=== PATIENT | female | born 1970 | race Asian ===

== ENCOUNTER 2020-05-01 08:07 | Inpatient (IN) | payer BC ==
--- NOTE | 2020-05-01 04:03 | HP ---
Satellite [facility] - Chief Complaint History Source: Patient Limitations to Obtaining History: No Limitations - Past Medical History Allergies/Adverse Reactions: Allergies Allergy/AdvReac Type Severity Reaction Status Date / Time No Known Drug Allergies Allergy Verified 04/27/20 17:52 ...LMP: 04/26/20 - Current Medications Current Medications: Home Medications Medication Instructions Recorded Acetaminophen [Tylenol] 650 mg PO PRN PRN 04/27/20 Ascorbate Calcium/Bioflavonoid 1 each PO DAILY 04/27/20 [Rachell-C 1,000 mg Tablet] Cyanocobalamin (Vitamin B-12) 2,500 mcg PO DAILY 04/27/20 [Vitamin B12] Ibuprofen [Motrin -] 400 mg PO PRN PRN 04/27/20 Iron 65 mg PO DAILY 04/27/20 Multivitamin [Multiple Vitamins] 1 each PO DAILY 04/27/20 Satellite Physical Exam - Physical Examination General Appearance: Well Nourished, Well Developed, Obese Lung: Clear to auscultation Heart: Regular rate & rhythm Breasts: Soft, Non-Tender Abdomen: Soft, No tenderness Extremities: No edema Pelvic Exam: Within normal limits External Genitalia, Within normal limits Vagina, Within normal limits Cervix, Within normal limits [place], Other Uterus (uterus enlarged 14cm) Neurological: Intact, Alert, Oriented Satellite Impression/Plan - Impression/Plan Impression: Leiomyomatous uterus. menorrhagia. anemia. SP transfusion Operative Procedure: Total abdominal hysterectomy. bilateral salpingectomy
[2020-05-01] MEDS ORDERED: BUPIVACAINE LIPOSOME/PF (EXPAREL) 266 MG/20 ML VIAL ONE (12:03)
[2020-05-01] MEDS ORDERED: MIDAZOLAM HCL 2 MG/2 ML SINGLE DOSE VIAL ONE ×2 (12:11)
[2020-05-01] MEDS ORDERED: CEFAZOLIN 2 GM in DEXTROSE 5%-WATER - 100 ML IVPB ONE (12:15)
[2020-05-01] MEDS ORDERED: PHENAZOPYRIDINE HCL 100 MG TABLET (FP) PO ONE (12:15)
[2020-05-01] MEDS ORDERED: ROCURONIUM BROMIDE 50 MG/5 ML SYRINGE ONE (13:08)
[2020-05-01] MEDS ORDERED: LIDOCAINE HCL/PF 2% SDV 5ML VIAL ONE (13:10)
[2020-05-01] MEDS ORDERED: ceFAZolin SODIUM 1 GM VIAL ONE ×2 (13:17→22:27)
[2020-05-01] MEDS ORDERED: SODIUM CHLORIDE 0.9% P/F 10 ML VIAL IJ ONE (13:17)
[2020-05-01] MEDS ORDERED: ceFAZolin 2 GRAM PREMIX BAG IVPB ONE (13:19)
[2020-05-01] MEDS ORDERED: DEXAMETHASONE SOD PHOSPHATE 4 MG/1 ML VIAL ONE (13:19)
[2020-05-01] MEDS ORDERED: NEOSTIGMINE METHYLSULFATE 0.5 MG/ML - 10 ML MDV ONE (14:50)
[2020-05-01] MEDS ORDERED: ONDANSETRON 4 MG/2 ML VIAL IVPUSH PRN (15:10)
[2020-05-01] MEDS ORDERED: BISACODYL 5 MG TABLET.DR (FP) PO PRN (15:10)
[2020-05-01] MEDS ORDERED: DOCUSATE SODIUM 100 MG CAPSULE (FP) PO PRN (15:10)
[2020-05-01] MEDS ORDERED: IBUPROFEN 800 MG/8 ML IJ IVPB PRN (15:10)
[2020-05-01] MEDS ORDERED: ACETAMINOPHEN 325 MG TABLET (FP) PO PRN (15:10)
[2020-05-01] MEDS ORDERED: SIMETHICONE 80 MG TAB.CHEW (FP) PO PRN (15:10)
[2020-05-01] MEDS ORDERED: HYDROmorphone *PCA* 10MG/50ML DISP.SYRIN PCA SCH (15:15)
--- NOTE | 2020-05-01 15:25 | OP ---
Operative Note - Note: Operative Date: 05/01/20 Pre-Operative Diagnosis: Premenopausal bleeding Operation: Abdominal hysterectomy and bilateral salpingectomy Post-Operative Diagnosis: Same as Pre-op Surgeon: Susanne Funez Lithoplate Maker: Kirby Comer Anesthesiologist/PEDIATRIC NEUROLOGIST: Concepción Arredondo MD Anesthesia: General Estimated Blood Loss (mls): 250 Operative Report Dictated: Yes
--- NOTE | 2020-05-01 15:26 | SURG ---
Surgery Green Pipefitter Note Green Pipefitter: Kirby Comer PA-C Date of Service: 05/01/20 Diagnosis: premenopausal bleeding Procedure: abdominal hysterectomy and bilateral salpingectomy I was present for the entirety of the operative procedure. For further detail, please refer to operative report. Visit type - Case Type Case Type: Scheduled - Emergency Emergency Visit: No - New patient This patient is new to me today: Yes Date on this admission: 05/01/20 - Critical Care Critical Care patient: No
[2020-05-01] MEDS ORDERED: HYDROmorphone *PCA* 10MG/50ML DISP.SYRIN ONE (15:31)
[2020-05-01] MEDS: LACTATED RINGERS SOLUTION 1,000 ML IV SCH ×2 (15:40→23:51)
[2020-05-01] MEDS ORDERED: CEFAZOLIN 1 GM/D5W 1 GM/50 ML BAG IVPB SCH (18:00)
[2020-05-01 18:49] LABS: HEMATOCRIT 25.1 % (32.4-45.2); HEMOGLOBIN 7.8 GM/dL (10.7-15.3); MCH 26.7 pg (25.7-33.7); MCHC 31.1 g/dl (32.0-36.0); MEAN CELL VOLUME 85.8 fl (80-96); MEAN PLT VOLUME 8.8 fl (7.5-11.1); PLATELET COUNT 398 K/MM3 (134-434); RBC 2.93 M/mm3 (3.60-5.2); RDW 27.1 % (11.6-15.6); WHITE BLOOD COUNT 12.6 K/mm3 (4.0-10.0)
[2020-05-01 19:13] LABS: CALCIUM 8.4 mg/dL (8.5-10.1); CREATININE 0.5 mg/dL (0.55-1.3); POTASSIUM 4.2 mmol/L (3.5-5.1)
[2020-05-01] MEDS: CEFAZOLIN 1 GM in DEXTROSE 5%-WATER - 50 ML IVPB SCH (22:00)
[2020-05-01] MEDS ORDERED: DEXTROSE 5%-WATER - 50 ML IVPB ONE (22:27)
[2020-05-02] MEDS: CEFAZOLIN 1 GM in DEXTROSE 5%-WATER - 50 ML IVPB SCH ×3 (02:48→17:41)
[2020-05-02] MEDS ORDERED: DEXTROSE 5%-WATER - 50 ML IVPB ONE ×3 (02:53→17:35)
[2020-05-02] MEDS ORDERED: ceFAZolin SODIUM 1 GM VIAL ONE ×3 (02:53→17:35)
[2020-05-02 07:58] LABS: HEMATOCRIT 23.3 % (32.4-45.2); HEMOGLOBIN 7.4 GM/dL (10.7-15.3); MCHC 31.8 g/dl (32.0-36.0); MEAN CELL VOLUME 84.8 fl (80-96); PLATELET COUNT 380 K/MM3 (134-434); RBC 2.75 M/mm3 (3.60-5.2); RDW 26.5 % (11.6-15.6); WHITE BLOOD COUNT 7.1 K/mm3 (4.0-10.0)
[2020-05-02 08:22] LABS: BLOOD UREA NITROGEN 6.8 mg/dL (7-18); CALCIUM 8.4 mg/dL (8.5-10.1); CREATININE 0.6 mg/dL (0.55-1.3); POTASSIUM 4.3 mmol/L (3.5-5.1)
[2020-05-02] MEDS: ENOXAPARIN NA (PORCINE) 40 MG/0.4 ML DISP.SYRIN SQ SCH (09:25)
--- NOTE | 2020-05-02 12:47 | PN ---
Progress Note (short form) - Note Progress Note: 49yo F s/p total abdominal hysterectomy, POD 1. Pt seen and examined at bedside. Pt complaining of some abd pain, but controlled with RECREATION PROGRAM SPECIALIST. Pt denies n/v, fever, chills. Pt has urinated after pruitt removed. Pt denies excessive vaginal bleeding. Last Vital Signs Temp Pulse Resp BP Pulse Ox 98.7 F 50 L 18 135/70 100 05/02/20 07:45 05/02/20 07:45 05/02/20 09:00 05/02/20 07:45 05/02/20 09:00 CBC, BMP 05/02/20 06:38 05/02/20 06:38 PE: Gen: a&O x 3 Resp: breathing comfortably Abd: soft, nondistended, mild lower abd tenderness, incision clean with no erythema or discharge. Ext: no edema Problem List - Problems (1) S/P hysterectomy Assessment/Plan: Plan -pt appears stable, Hgb noted to have dropped from 10 to 7.2 from 04/27/20. Pt has history of chronic anemia and multiple transfusions in the past, pt is asymptomatic and vitals stable, will watch closely for changes. -OOB/ambulate -regular diet -DVT ppx Pt discussed with Dr. Funez who agrees with plan Problems reviewed: Yes Code(s): Z90.710 - ACQUIRED ABSENCE OF BOTH CERVIX AND UTERUS (2) Anemia Problems reviewed: Yes Code(s): D64.9 - ANEMIA, UNSPECIFIED Qualifiers: Iron deficiency anemia type: chronic blood loss
[2020-05-02] MEDS ORDERED: oxyCODONE HCL 5 MG TABLET PO PRN (14:05)
[2020-05-02] MEDS ORDERED: PCA PUMP NR ONE (14:40)
--- NOTE | 2020-05-02 15:43 | PN ---
Progress Note (short form) - Note Progress Note: 49F POD#1 for BRUNO under GETA with block now doing well. pain well controlled. no anesthesia related complications. continue with current management
[2020-05-02] MEDS: LACTATED RINGERS SOLUTION 1,000 ML IV SCH (17:40)
[2020-05-02] MEDS: oxyCODONE HCL 5 MG TABLET PO PRN (21:15)
[2020-05-02 21:23] LABS: BASO % 1.2 % (0-2.0); EOS % 0.5 % (0-4.5); HEMATOCRIT 23.5 % (32.4-45.2); HEMOGLOBIN 7.3 GM/dL (10.7-15.3); LYMPH % 12.3 % (8-40); MCH 26.9 pg (25.7-33.7); MCHC 31.3 g/dl (32.0-36.0); MEAN CELL VOLUME 85.8 fl (80-96); MEAN PLT VOLUME 8.6 fl (7.5-11.1); MONO % 5.8 % (3.8-10.2); NEUT % 80.2 % (42.8-82.8); PLATELET COUNT 367 K/MM3 (134-434); RBC 2.73 M/mm3 (3.60-5.2)
[2020-05-02 22:17] LABS: ANISOCYTOSIS 2+; MACROCYTOSIS 0
[2020-05-02] MEDS ORDERED: BISACODYL 10 MG SUPP.RECT PR PRN (22:28)
[2020-05-03] MEDS: oxyCODONE HCL 5 MG TABLET PO PRN ×3 (05:03→22:17)
[2020-05-03] MEDS: ENOXAPARIN NA (PORCINE) 40 MG/0.4 ML DISP.SYRIN SQ SCH (09:25)
[2020-05-03 10:38] VITALS: BMI 29.5
--- NOTE | 2020-05-03 13:05 | PN ---
Progress Note (short form) - Note Progress Note: Surgery 49yo F s/p total abdominal hysterectomy, POD 2. Pt seen and examined at bedside. Pt complaining of some abd pain, but controlled pain meds. She is ambulating and tolerating her clear diet but she has not passed any flatus yet. Pt denies any fever, blurred vision, dizziness, chills, n/v, CP or SOB. Vital Signs Period Temp Pulse Resp BP Sys/Hackett Pulse Ox Last 24 Hr 97.8 F-99.6 F 54-67 20-20 102-132/59-71 100-100 CBC, BMP 05/02/20 21:15 05/02/ 06:38 PE: Gen: a&O x 3, NAD Resp: breathing comfortably Abd: obese, soft, nondistended, mild lower abd tenderness, incision clean with no erythema or discharge. Ext: no edema Problem List - Problems (1) S/P hysterectomy Assessment/Plan: POD #2 abdominal hysterectomy Plan -f/u cbc this afternoon -OOB/ambulate -regular diet -DVT ppx - will advance diet once passing flatus -plan for d/c home tomorrow vs tonight if tolerating diet Pt discussed with Dr. Funez who agrees with plan Code(s): Z90.710 - ACQUIRED ABSENCE OF BOTH CERVIX AND UTERUS
[2020-05-03 14:16] LABS: HEMATOCRIT 25.1 % (32.4-45.2); HEMOGLOBIN 7.9 GM/dL (10.7-15.3); MCHC 31.4 g/dl (32.0-36.0); MEAN CELL VOLUME 86.1 fl (80-96); MEAN PLT VOLUME 8.8 fl (7.5-11.1); PLATELET COUNT 414 K/MM3 (134-434); RBC 2.91 M/mm3 (3.60-5.2); RDW 25.3 % (11.6-15.6); WHITE BLOOD COUNT 8.2 K/mm3 (4.0-10.0)
[2020-05-03] MEDS: LACTATED RINGERS SOLUTION 1,000 ML IV SCH (22:18)
[2020-05-04 06:43] VITALS: BP 124/73; PULSE 58; TEMP 97.7
--- NOTE | 2020-05-04 06:49 | DS ---
Physical Exam: SUBJECTIVE: Patient seen and examined OBJECTIVE: Vital Signs Temperature 97.7 F 05/04/20 06:00 Pulse Rate 58 L 05/04/20 06:00 Respiratory Rate 20 05/04/20 06:00 Blood Pressure 124/73 05/04/20 06:00 O2 Sat by Pulse Oximetry (%) 100 05/03/20 21:00 PHYSICAL EXAM GENERAL: The patient is awake, alert, and fully oriented, in no acute distress. HEAD: Normal with no signs of trauma. EYES: PERRL, extraocular movements intact, sclera anicteric, conjunctiva clear. ENT: Ears normal, nares patent, oropharynx clear without exudates, moist mucous membranes. NECK: Trachea midline, full range of motion, supple. LUNGS: Breath sounds equal, clear to auscultation bilaterally, no wheezes, no crackles, no accessory muscle use. HEART: Regular rate and rhythm, S1, S2 without murmur, rub or gallop. ABDOMEN: steri strips intact. no hematoma EXTREMITIES: 2+ pulses, warm, well-perfused, no edema. NEUROLOGICAL: Cranial nerves II through XII grossly intact. Normal speech, gait not observed. PSYCH: Normal mood, normal affect. SKIN: Warm, dry, normal turgor, no rashes or lesions noted. LABS CBC,CMP WBC 8.2 K/mm3 (4.0-10.0) 05/03/20 13:35 RBC 2.91 M/mm3 (3.60-5.2) L 05/03/20 13:35 Hgb 7.9 GM/dL (10.7-15.3) L 05/03/20 13:35 Hct 25.1 % (32.4-45.2) L 05/03/20 13:35 MCV 86.1 fl (80-96) 05/03/20 13:35 MCH 27.0 pg (25.7-33.7) 05/03/20 13:35 MCHC 31.4 g/dl (32.0-36.0) L 05/03/20 13:35 RDW 25.3 % (11.6-15.6) H 05/03/20 13:35 Plt Count 414 K/MM3 (134-434) 05/03/20 13:35 MPV 8.8 fl (7.5-11.1) 05/03/20 13:35 Absolute Neuts (auto) 6.4 K/mm3 (1.5-8.0) 05/02/20 21:15 Neutrophils % 80.2 % (42.8-82.8) 05/02/20 21:15 Lymphocytes % 12.3 % (8-40) D 05/02/20 21:15 Monocytes % 5.8 % (3.8-10.2) 05/02/20 21:15 Eosinophils % 0.5 % (0-4.5) 05/02/20 21:15 Basophils % 1.2 % (0-2.0) 05/02/20 21:15 Nucleated RBC % 0 % (0-0) 05/02/20 21:15 Hypochromia 0 05/02/20 21:15 Polychromasia 1+ 05/02/20 21:15 Poikilocytosis 1+ 05/02/20 21:15 Anisocytosis 2+ 05/02/20 21:15 Microcytosis 2+ 05/02/20 21:15 Macrocytosis 0 05/02/20 21:15 Fragmented RBCs 1+ 05/02/20 21:15 Sodium 139 mmol/L (136-145) 05/02/20 06:38 Potassium 4.3 mmol/L (3.5-5.1) 05/02/20 06:38 Chloride 105 mmol/L (98-107) 05/02/20 06:38 Carbon Dioxide 26 mmol/L (21-32) 05/02/20 06:38 Anion Gap 8 MMOL/L (8-16) 05/02/20 06:38 BUN 6.8 mg/dL (7-18) L 05/02/20 06:38 Creatinine 0.6 mg/dL (0.55-1.3) 05/02/20 06:38 Est GFR (CKD-EPI)AfAm 122.32 05/02/20 06:38 Est GFR (CKD-EPI)NonAf 105.54 05/02/20 06:38 Random Glucose 91 mg/dL (74-106) 05/02/20 06:38 Calcium 8.4 mg/dL (8.5-10.1) L 05/02/20 06:38 Serum , Qual Negative 05/01/20 08:17 HOSPITAL COURSE: Date of Admission:05/01/20 Date of Discharge: 05/04/20 The patient was admitted to the Med-Surg Unit after an elective repair of her leiomyomas/pelvic pain. Now, s/p open abdominal hysterectomy. Pain management was achieved with a narcotic and non-narcotic oral and IV regimen. POD #1, the patient passed flatus and diet was advanced. Hemoglobin and hematocrit were monitored as well as vitals and remained stable throughout admission. Melinda-operative IV ABX were administered. DVT prophylaxis was achieved with Lovenox 40mg qd, SCDs and early ambulation. The patient ambulated the halls without issue. Narcotic scripts were checked with [employer] REPRESENTATIVE prior to escribe. The discharge instructions and an oral pain management plan were reviewed with the patient. All questions answered. Above plan discussed with Dr. Funez and agreed. Minutes to complete discharge: 35 Visit type - Case Type Case Type: Scheduled - New patient This patient is new to me today: Yes Date on this admission: 05/04/20
--- NOTE | 2020-05-06 11:52 | PATH ---
Surgical Pathology Report Patient Name: [facility]. Rec. #: [id number] /Age/Gender: 1970 (Age: 49) / F Account: [id number] Location: [facility] MED/SURG Taken: 05/01/2020 Received: 05/02/2020 Reported: 05/06/2020 Physicians: Susanne Funez M.D. Specimen(s) Received A: UTERUS AND CERVIX B: RIGHT FALLOPIAN TUBE C: LEFT FALLOPIAN TUBE Clinical History The Premenopausal bleeding Final Diagnosis A. UTERUS AND CERVIX, HYSTERECTOMY: ONE LEIOMYOMA (INTRAMURAL). EXTENSIVE ADENOMYOSIS. PROLIFERATIVE ENDOMETRIUM. CERVIX WITH ACUTE AND CHRONIC CERVICITIS, SQUAMOUS METAPLASIA. B. RIGHT FALLOPIAN TUBE, SALPINGECTOMY: PORTION OF FALLOPIAN TUBE WITH NO SIGNIFICANT PATHOLOGIC CHANGE. C. LEFT FALLOPIAN TUBE, SALPINGECTOMY: PORTION OF FALLOPIAN TUBE WITH PARATUBAL CYSTS. Electronically Signed Gianna Westbrook M.D. Gross Description A. Received in formalin labeled "uterus and cervix," is a 534 g amputated uterus with no attached adnexa. The cervix is separately received within the same container. The serosa is mcnulty-arzate and smooth. The separately received cervix measures 3 cm in length and averages 2.8 cm in diameter. The ectocervix is mcnulty-pink, smooth and glistening. The endocervix is unremarkable. The uterus measures 10.5 cm from superior to inferior, 10 cm from anterior to posterior and 10 cm from left to right. The endometrial cavity measures 5 cm in length and 3 cm from cornu to cornu. The endometrium is red and averages 0.1 cm in thickness. The myometrium displays a 2.4 cm in greatest dimension possible intramural nodule. The remaining myometrium is mcnulty-pink and trabeculated with foci of hemorrhage, consistent with adenomyosis. The myometrium measures up to 7 cm in thickness. Call Centre Supervisor sections are submitted in 7 cassettes as follows: 1-2-cervix; 1-1-joosqlwjmklrnn; 7-possible intramural nodule. B. Received in formalin labeled "right fallopian tube," is a 4.5 cm in length fimbriated fallopian tube. The outer surface is arzate purple and smooth. Sectioning reveals an unremarkable lumen. Call Centre Supervisor sections are submitted in 2 cassettes as follows: 1-fimbria; 2-cross sections of fallopian tube. C. Received in formalin labeled "left fallopian tube," is a 3.2 cm in length fimbriated fallopian tube. The outer surface is arzate purple with a 1.0 cm in greatest dimension paratubal cyst attached to the fimbria. Sectioning reveals an unremarkable fallopian tube lumen. Call Centre Supervisor sections are submitted in 2 cassettes as follows: 1-fimbria with paratubal cyst; 2-cross sections of fallopian tube. 05/02/2020 [facility]05/02/2020
--- NOTE | 2020-05-09 13:04 | OP ---
DATE OF OPERATION: 05/02/2020 PREOPERATIVE DIAGNOSIS: Leiomyomatous uterus, pelvic pain. OPERATION: Total abdominal hysterectomy and bilateral salpingectomy. SURGEON: Aston Funez MD FOOD CHECKER: Kirby CHAVARRIA ANESTHESIA: General. DESCRIPTION OF PROCEDURE: Patient was taken to the operating room, placed in supine position, prepped and draped in the usual sterile fashion. Timeout was performed in accordance with hospital regulations. Pfannenstiel skin incision was made with a scalpel. Cautery was then used to go through the layers of the abdominal wall to the level of the fascia. Fascia was cut in the midline. Cautery was then used to open the fascia in smiling fashion. Kochers were then used to bluntly and sharply dissect the rectus muscle off the fascia. Muscle was split in the midline. Peritoneal cavity was then entered and carried upward and downward. Leiomyomatous uterus was then exteriorized, with multiple myomas and adenomyosis seen. Tubes and ovaries were noted to be normal. Round ligament was identified, and LigaSure was then used to cut the round ligament bilaterally. Vesicouterine section was then entered, and bladder was bluntly dissected off the operative field. A uteroovarian ligament was identified and clamped and cut. Uterine arteries were identified on the left and clamped and cut. Cardinal ligament was identified, clamped and cut down to the level of the cervix. The vagina was then entered, and the same procedure was repeated on the other side. Uterine arteries were identified and clamped and cut after uteroovarian ligament was identified and clamped and cut. Ovaries were noted to be normal. Cardinal ligament was identified and clamped and cut down to the level of the cervix. The Thelma's were then used to cut the vagina away from the cervix, then specimen was submitted to pathology. The vagina was then closed using continuous stitch using 2-0 V-Loc suture. Hemostasis was achieved. Fallopian tubes were bilaterally grasped, and coagulation and cutting were then used to remove both the left and the right tube. Two tubal cysts were seen. All specimens were submitted to pathology, irrigation done, hemostasis achieved. All pad count was noted to be normal. Abdominal sweep done. Peritoneum was then closed using 0 Vicryl suture in a continuous fashion. Fascia was then closed using 0 Vicryl suture in 2 parts continuous fashion. The subcutaneous was approximated using 2-0 Vicryl suture, and skin was then closed using 4-0 Biosyn suture in subcuticular fashion. Wound was washed and dressed. Patient tolerated the procedure well and was taken to recovery room in stable condition. Estimated blood loss was about 250 mL. ASTON FUNEZ M.D. [id number] MTDD
== END 2020-05-04 08:41 | disposition home or self-care (01) | DRG 743 ==
LOC: JASUSAT 08:07 → J8W 18:34 → JASUSAT 18:35
PROVIDERS: ADMIT Obstetrics & Gynecology; ATTEND Obstetrics & Gynecology
PROC: 0UT90ZZ Resection of Uterus, Open Approach (ICD-10-PCS; principal; 2020-05-01 10:30)
PROC: 0UT70ZZ Resection of Bilateral Fallopian Tubes, Open Approach (ICD-10-PCS; 2020-05-02)
DX: D25.9 Leiomyoma of uterus, unspecified (principal); R10.2 Pelvic and perineal pain; N92.4 Excessive bleeding in the premenopausal period; D39.0 Neoplasm of uncertain behavior of uterus; D64.9 Anemia, unspecified; N83.8 Other noninflammatory disorders of ovary, fallopian tube and broad ligament
CPT/HCPCS: 36415; 80048; 84703; 85025; 85027; 86850; 86900; 86901; 88302-TC; 88307-TC; 94760